=== PATIENT | female | born 1985 | race Caucasian/White ===

== ENCOUNTER → 2021-03-13 | Day surgery (SDC) | payer BC ==
[~2021-03-13] MED LIST: AMITRIPTYLINE100 MG PO; ASPIRIN81 MG PO; COLACE100 MG PO; CYANOCOBAL1000 MCG/1 INJ; FLAGYL500 MG PO; IBU800 MG PO; IBUPROFEN800 MG PO; LORATADINE10 MG PO; NORCO 5-325 TA1 EACH PO; OMNICEF 300 MG300 MG PO; PERCOCET 5/325 T1 EA PO; PROTONIX40 MG PO; TYLENOL EXTRA500 MG PO; ZITHROMAX250 MG PO; ZOFRAN4 MG PO
[2021-03-13 07:37] LABS: HEMOGLOBIN 16.1 gm/dl (12.3-15.3); RED BLOOD COUNT 5.12 M/UL (4.00-5.10)
== END | disposition home or self-care (01) ==
LOC: OR 07:07
PROVIDERS: Obstetrics & Gynecology
DX: N80.3 Endometriosis of pelvic peritoneum (principal); R10.2 Pelvic and perineal pain; N94.6 Dysmenorrhea, unspecified; M54.9 Dorsalgia, unspecified; K58.9 Irritable bowel syndrome, unspecified; N83.201 Unspecified ovarian cyst, right side; N94.10 Unspecified dyspareunia; Z87.891 Personal history of nicotine dependence; F41.9 Anxiety disorder, unspecified; F32.9 Major depressive disorder, single episode, unspecified; D64.9 Anemia, unspecified
CPT/HCPCS: 81001; 85025; J0690; J1100; J1885; J2001; J2250; J2370; J2405; J2704; J2710; J3010; J7120